=== PATIENT | male | born 1945 | race Caucasian/White ===

== ENCOUNTER 2017-06-29 15:22 | Outpatient (CLI) | payer MEDICARE ==
--- NOTE | 2017-06-30 09:09 | XRAY Report ---
THREE VIEW RIGHT SHOULDER: 06/29/2017 CLINICAL INDICATION: Pain. FINDINGS: Internal and external rotational views and a scapular Y view of the right shoulder demonstrate moderate glenohumeral osteoarthritis, with marginal osteophytes. There is no evidence of acute fracture or dislocation. There is a parenchymal opacity in the right upper lobe, which does not appear associated with a rib. Consider chest CT for further evaluation. IMPRESSION: 1. MODERATE OSTEOARTHRITIS OF THE RIGHT GLENOHUMERAL JOINT. 2. POSSIBLE PULMONARY NODULE IN THE RIGHT UPPER LOBE. CONSIDER CHEST CT FOR FURTHER EVALUATION. TD: 06/30/2017 09:08
== END 2017-06-29 15:23 | disposition home or self-care (01) ==
LOC: DI.S 15:22
PROVIDERS: ATTEND Family Medicine
DX: M19.011 Primary osteoarthritis, right shoulder (principal)

== ENCOUNTER 2017-07-21 08:34 | Outpatient (CLI) | payer OTHER, MEDICARE ==
[2017-07-21] MEDS ORDERED: IOPAMIDOL-300 100 ML VIAL ONE (09:22)
[2017-07-21 10:18] LABS: ALBUMIN 4.1 g/dL (3.2-5.5); ALBUMIN/GLOBULIN RATIO 1.3 (1.0-2.2); ALKALINE PHOSPHATASE 75 IU/L (42-121); ALT ALANINE AMINOTRANSFERASE 21 IU/L (10-60); AST ASPARTATE AMINOTRANSFERASE 25 IU/L (10-42); BILIRUBIN,TOTAL 0.6 mg/dL (0.2-1.0); BUN - BLOOD UREA NITROGEN 15 mg/dL (6-20); CALCIUM 8.9 mg/dL (8.5-10.3); CARBON DIOXIDE - CO2 25 mmol/L (21-32); CHLORIDE 97 mmol/L (101-111); CHOL/HDL RATIO 2.6 (<5.0); CHOLESTEROL 172 mg/dL; CREATININE 0.5 mg/dL (0.6-1.2); GFR - MDRD 164 (>89); GLUCOSE 83 mg/dL (70-100); HDL CHOLESTEROL 66 mg/dL; LDL CHOLESTEROL,CALCULATED 93 mg/dL; LDL/HDL RATIO 1.4 (<3.6); SODIUM 131 mmol/L (135-145); TOTAL PROTEIN 7.2 g/dL (6.7-8.2); VLDL CHOLESTEROL 13 mg/dL
[2017-07-21] MEDS ORDERED: IOPAMIDOL-300 100 ML VIAL IVP ONE (10:39)
--- NOTE | 2017-07-21 14:18 | CT Report ---
CT CHEST WITH CONTRAST: 07/21/2017 CLINICAL INDICATION: Possible pulmonary nodule on shoulder film of 06/29/2017. TECHNIQUE: Axial CT images of the chest were obtained with 80 mL Isovue 300 intravenously. COMPARISON: Shoulder films 06/29/2017. FINDINGS: The heart and great vessels demonstrate atherosclerotic calcifications. No hilar or mediastinal lymphadenopathy is present. In the superior segment of the right lower lobe, there is a thick-walled cavitary lesion, measuring 4.1 x 3.2 x 3.5 cm, suspicious for neoplasm. The lungs also demonstrate emphysema and biapical fibrosis. No effusion or pneumothorax is present. Osseous structures demonstrate degenerative changes. Limited evaluation of upper abdominal structures demonstrates mild fullness of the left adrenal gland, without evidence of a focal lesion. IMPRESSION: THICK-WALLED CAVITARY LESION IN THE SUPERIOR SEGMENT OF THE RIGHT LOWER LOBE, SUSPICIOUS FOR NEOPLASM. BACKGROUND EMPHYSEMA AND FIBROSIS. CT DOSE REDUCTION STATEMENT In accordance with CT protocol optimization, one or more of the following dose reduction techniques were utilized for this exam: automated exposure control, adjustment of mA and/or KV based on patient size, or use of iterative reconstructive technique. TD: 07/21/2017 14:17
== END 2017-07-21 08:35 | disposition home or self-care (01) ==
LOC: DI 08:34
PROVIDERS: ATTEND Family Medicine
DX: J98.4 Other disorders of lung (principal); J43.9 Emphysema, unspecified; J84.10 Pulmonary fibrosis, unspecified; I10 Essential (primary) hypertension; E78.5 Hyperlipidemia, unspecified
CPT/HCPCS: 71260; 80053; 80061; Q9967; 83721

== ENCOUNTER 2017-12-30 08:00 | Outpatient (CLI) | payer MEDICARE, OTHER ==
[2017-12-30 11:09] LABS: BASOPHILS # (AUTO) 0.2 10^3/uL (0.0-0.1); BASOPHILS % (AUTO) 3.7 %; EOSINOPHILS # (AUTO) 1.3 10^3/uL (0.0-0.7); HGB - HEMOGLOBIN 11.3 g/dL (14.0-18.0); LYMPHOCYTES # (AUTO) 0.8 10^3/uL (1.5-3.5); LYMPHOCYTES % (AUTO) 16.4 %; MEAN CORPUSCULAR HEMOGLOBIN 30.4 pg (27.0-31.0); MEAN CORPUSCULAR HGB CONC 34.6 g/dL (32.0-36.0); MEAN CORPUSCULAR VOLUME 87.9 fL (80.0-94.0); MEAN PLATELET VOLUME 6.2 fL (7.4-11.4); MONOCYTES # (AUTO) 0.6 10^3/uL (0.0-1.0); MONOCYTES % (AUTO) 11.9 %; NEUTROPHILS # (AUTO) 2.1 10^3/uL (1.5-6.6); PLT - PLATELET COUNT 384 10^3/uL (130-450); RED BLOOD COUNT 3.71 10^6/uL (4.70-6.10); RED CELL DISTRIBUTION WIDTH 15.4 % (12.0-15.0); WHITE BLOOD COUNT 5.1 x10^3/uL (4.8-10.8)
[2017-12-30 11:57] LABS: ALBUMIN 2.5 g/dL (3.2-5.5); BUN - BLOOD UREA NITROGEN 12 mg/dL (6-20); CALCIUM 8.3 mg/dL (8.5-10.3); CARBON DIOXIDE - CO2 28 mmol/L (21-32); CHLORIDE 93 mmol/L (101-111); CREATININE 0.5 mg/dL (0.6-1.2); GFR - MDRD 164 (>89); GLUCOSE 91 mg/dL (70-100); PHOSPHORUS 3.5 mg/dL (2.5-4.6); SODIUM 129 mmol/L (135-145); VANCOMYCIN,TROUGH 16.6 ug/mL (10.0-20.0)
== END 2017-12-30 08:01 | disposition home or self-care (01) ==
LOC: LAB.R 08:00
PROVIDERS: ATTEND Family Medicine
DX: J86.9 Pyothorax without fistula (principal)
CPT/HCPCS: 80069; 80202; 85025

== ENCOUNTER 2018-01-06 08:00 | Outpatient (CLI) | payer OTHER ==
[2018-01-06 17:44] LABS: BASOPHILS % (AUTO) 2.6 %; EOSINOPHILS % (AUTO) 30.6 %; HGB - HEMOGLOBIN 11.6 g/dL (14.0-18.0); LYMPHOCYTES % (AUTO) 15.4 %; MEAN CORPUSCULAR HEMOGLOBIN 29.9 pg (27.0-31.0); MEAN CORPUSCULAR HGB CONC 33.9 g/dL (32.0-36.0); MEAN PLATELET VOLUME 6.4 fL (7.4-11.4); MONOCYTES % (AUTO) 17.6 %; NEUTROPHILS % (AUTO) 33.8 %; PLT - PLATELET COUNT 358 10^3/uL (130-450); RED CELL DISTRIBUTION WIDTH 15.2 % (12.0-15.0); WHITE BLOOD COUNT 5.1 x10^3/uL (4.8-10.8)
[2018-01-06 17:49] LABS: ABNORMAL LYMPHS % (MANUAL) 0 %; BAND NEUTROPHILS % (MANUAL) 0 %
[2018-01-06 18:25] LABS: BUN - BLOOD UREA NITROGEN 15 mg/dL (6-20); CALCIUM 8.3 mg/dL (8.5-10.3); CARBON DIOXIDE - CO2 28 mmol/L (21-32); CHLORIDE 98 mmol/L (101-111); CREATININE 0.5 mg/dL (0.6-1.2); GFR - MDRD 164 (>89); GLUCOSE 90 mg/dL (70-100); SODIUM 132 mmol/L (135-145); VANCOMYCIN,TROUGH 14.4 ug/mL (10.0-20.0)
[2018-01-06 19:11] LABS: BASOPHILS # (MANUAL) 0.1 10^3/uL (0-0.1); BASOPHILS % (MANUAL) 1 %; EOSINOPHILS # (MANUAL) 1.7 10^3/uL (0-0.7); LYMPHOCYTES # (MANUAL) 0.8 10^3/uL (1.5-3.5); LYMPHOCYTES % (MANUAL) 14 %; MONOCYTES # (MANUAL) 0.7 10^3/uL (0.0-1.0); NEUTROPHILS # (MANUAL) 1.9 10^3/uL (1.5-6.6); NEUTROPHILS % (MANUAL) 37 %
[2018-01-06 19:13] LABS: DIFFERENTIAL COMMENT MANUAL DIFFERENTIAL; PLATELET ESTIMATE, MANUAL NORMAL (130-450,000) (NORMAL); PLATELET MORPHOLOGY NORMAL APPEARANCE (NORMAL); RBC MORPHOLOGY (MULTIPLE) 1+ ANISOCYTOSIS (NORMAL)
== END 2018-01-06 08:01 | disposition home or self-care (01) ==
LOC: LAB.F 08:00
DX: J86.9 Pyothorax without fistula (principal)
CPT/HCPCS: 80048; 80202; 85025

== ENCOUNTER 2018-01-13 08:00 | Outpatient (CLI) | payer OTHER ==
[2018-01-13 10:56] LABS: BASOPHILS # (AUTO) 0.1 10^3/uL (0.0-0.1); BASOPHILS % (AUTO) 2.4 %; EOSINOPHILS # (AUTO) 0.7 10^3/uL (0.0-0.7); EOSINOPHILS % (AUTO) 16.9 %; HGB - HEMOGLOBIN 12.3 g/dL (14.0-18.0); LYMPHOCYTES # (AUTO) 0.8 10^3/uL (1.5-3.5); LYMPHOCYTES % (AUTO) 18.2 %; MEAN CORPUSCULAR HGB CONC 34.8 g/dL (32.0-36.0); MEAN CORPUSCULAR VOLUME 86.3 fL (80.0-94.0); MEAN PLATELET VOLUME 6.5 fL (7.4-11.4); MONOCYTES # (AUTO) 0.8 10^3/uL (0.0-1.0); MONOCYTES % (AUTO) 18.5 %; PLT - PLATELET COUNT 262 10^3/uL (130-450); RED BLOOD COUNT 4.11 10^6/uL (4.70-6.10); RED CELL DISTRIBUTION WIDTH 15.1 % (12.0-15.0); WHITE BLOOD COUNT 4.4 x10^3/uL (4.8-10.8)
[2018-01-13 11:08] LABS: BUN - BLOOD UREA NITROGEN 17 mg/dL (6-20); CALCIUM 8.6 mg/dL (8.5-10.3); CARBON DIOXIDE - CO2 26 mmol/L (21-32); CHLORIDE 98 mmol/L (101-111); CREATININE 0.4 mg/dL (0.6-1.2); GFR - MDRD 212 (>89); GLUCOSE 89 mg/dL (70-100); SODIUM 132 mmol/L (135-145); VANCOMYCIN,TROUGH 17.8 ug/mL (10.0-20.0)
== END 2018-01-13 08:01 | disposition home or self-care (01) ==
LOC: LAB.R 08:00
PROVIDERS: ATTEND Physician Assistant Surgical
DX: J86.9 Pyothorax without fistula (principal)
CPT/HCPCS: 80048; 80202; 85025